=== PATIENT | male | born 2000 | race Caucasian/White ===

== ENCOUNTER 2024-10-08 00:38 | Emergency (ER) | payer SELFPAY ==
[2024-10-08] MEDS: Diphtheria,Pertussis(Acell),Tetanus Vaccine 0.5 ML Syringe IM ONE (02:54)
== END 2024-10-08 03:57 | disposition home or self-care (01) ==
LOC: JD.ED 00:38
DX: S60.351A Superficial foreign body of right thumb, initial encounter (principal); Z23 Encounter for immunization; F17.210 Nicotine dependence, cigarettes, uncomplicated; W45.8XXA Other foreign body or object entering through skin, initial encounter
CPT/HCPCS: 73140-26-F5; 73140-F5; 90471; 90715; 99283-25